=== PATIENT | female | born 1995 | race Caucasian/White ===

== ENCOUNTER 2017-02-22 16:20 | Emergency (ER) | payer SELFPAY ==
[~2017-02-22] VITALS: Ht 162.6 cm; Wt 52.2 kg
[2017-02-22 16:34] VITALS: BP 124/67
[2017-02-22] MEDS ORDERED: LIDOCAINE 1% / SOD BICARB 8.4% 20 ML VIAL. IJ ONE (16:45)
[2017-02-22] MEDS ORDERED: DIPHTH,PERTUSS(ACELL),TET TOX 0.5 ML DISP.SYRIN. VAX IM ONE (16:45)
--- NOTE | 2017-02-22 17:47 | PHYS DOC ---
Past Medical History Past Medical History: No Pertinent History Past Surgical History: No Surgical History Additional Information: 3 TO 4 CIGARETTES A DAY Alcohol Use: None Drug Use: None Adult General Chief Complaint Chief Complaint: LACERATION/AVULSION HPI HPI Patient is a 21 year old female who presents with left ring finger laceration, patient accidentally cut herself with a knife that was in the sink while she was doing dishes. Review of Systems Review of Systems Constitutional: Denies fever or chills [] Eyes: Denies change in visual acuity, redness, or eye pain [] HENT: Denies nasal congestion or sore throat [] Musculoskeletal: Denies back pain or joint pain [] Integument: Left ring finger laceration Neurologic: Denies headache, focal weakness or sensory changes [] Endocrine: Denies polyuria or polydipsia [] Current Medications Current Medications Current Medications Medications (Trade) Dose Ordered Sig/Genevieve Start Time Stop Time Status Last Admin Dose Admin Diphtheria/ Tetanus/Acell Pertussis (Boostrix) 0.5 ml ONCE ONCE 02/22/17 16:45 02/22/17 16:46 DC 02/22/17 16:58 0.5 ML Lidocaine/Sodium Bicarbonate (Buffered Lidocaine 1%) 20 ml 1X ONCE 02/22/17 16:45 02/22/17 16:46 DC 02/22/17 16:56 20 ML Allergies Allergies Allergies Coded Allergies Type Severity Reaction Last Updated Verified Penicillins Allergy Intermediate Nausea and Vomiting 03/04/16 Yes Physical Exam Physical Exam Constitutional: Well developed, well nourished, no acute distress, non-toxic appearance. [] HENT: Normocephalic, atraumatic, bilateral external ears normal, oropharynx moist, no oral exudates, nose normal. [] Skin: Left medial ring finger, distal end with a laceration approximately 2 cm long, this no tendon involvement, full range of motion to the left ring finger MIP PIP and DIP joints. Adequate flexion and extension of the left ring finger at the MIP PIP and DIP joints. Adequate ulnar sensation to the left ring finger. +2 left radial pulse. Cap refill less than 2 seconds and left ring finger. Sensation intact to the left ring finger. Back: No tenderness, no CVA tenderness. [] Extremities: No tenderness, no cyanosis, no clubbing, ROM intact, no edema. [] Neurologic: Alert and oriented X 3, normal motor function, normal sensory function, no focal deficits noted. [] Psychologic: Affect normal, judgement normal, mood normal. [] Current Patient Data Vital Signs Vital Signs Date Time Temp Pulse Resp B/P Pulse Ox O2 Delivery O2 Flow Rate FiO2 02/22/17 16:34 98.4 89 16 124/67 99 Room Air 98.4 EKG EKG [] Radiology/Procedures Radiology/Procedures Indication: [] Left ring finger laceration Procedure: The patient was placed in the appropriate position and anesthesia around the finger was 1% buffered lidocaine. The area was then cleaned with 100 ML of normal saline and Betadine. The laceration was closed with 4 interrupted sutures using 5. 0 Ethilon. The wound was covered with Band-Aid Complications none Course & Med Decision Making Course & Med Decision Making Pertinent Labs and Imaging studies reviewed. (See chart for details) Patient has laceration to the left ring finger that was closed by me as noted in procedures. Tetanus was updated. Wound care instructions as well as return precautions provided. Dragon Disclaimer Dragon Disclaimer This electronic medical record was generated, in whole or in part, using a voice recognition dictation system. Departure Departure Impression: Primary Impression: Laceration of left ring finger Disposition: HOME, SELF-CARE Condition: STABLE Referrals: NO PCP (PCP) Follow-up with the ED or your own doctor in 7-10 days for suture removal Patient Instructions: Fingertip Laceration Additional Instructions: You were seen for finger laceration, you can shower. Keep the area clean and dry. Apply Neosporin to eat twice a day. Follow-up with the emergency room or your own doctor in 7-10 days for suture removal. REYNA PACHECO STEEL CRANE OPERATOR February 22, 2017 17:47
== END 2017-02-22 17:52 | disposition home or self-care (01) ==
LOC: ER 16:20
DX: S61.215A Laceration without foreign body of left ring finger without damage to nail, initial encounter (principal); Z88.0 Allergy status to penicillin; F17.210 Nicotine dependence, cigarettes, uncomplicated; W26.0XXA Contact with knife, initial encounter; Y93.89 Activity, other specified; Y92.89 Other specified places as the place of occurrence of the external cause; Y99.8 Other external cause status
CPT/HCPCS: 12002; 90471; 90715; 99283-25

== ENCOUNTER 2018-01-29 00:26 | Emergency (ER) | payer SELFPAY ==
[2018-01-29] MEDS ORDERED: traMADol 50 MG TABLET PO (01:00)
[2018-01-29] MEDS ORDERED: AZITHROMYCIN 250 MG TABLET. PO (01:00)
[2018-01-29] MEDS ORDERED: AZITHROMYCIN 250 MG TABLET. (01:13)
[2018-01-29] MEDS ORDERED: traMADol 50 MG TABLET (01:13)
[2018-01-29 01:21] LABS: NEG OBC UR NEG; POS OBC UR POS; U PREG PATIENT NEGATIVE (NEG)
== END 2018-01-29 01:18 | disposition home or self-care (01) ==
LOC: ER 00:26
DX: H66.92 Otitis media, unspecified, left ear (principal); Z88.0 Allergy status to penicillin
CPT/HCPCS: 81025; 84703; 99283

== ENCOUNTER 2018-06-23 19:45 | Emergency (ER) | payer SELFPAY ==
[~2018-06-23] VITALS: Ht 160 cm; Wt 63.5 kg
[~2018-06-23 19:45] MED LIST: AZIT250T PO; TRAM-48 PO
[2018-06-23 20:18] VITALS: BP 115/70
[2018-06-23] MEDS ORDERED: IPRATRPIUM/ALBUTEROL 0.5/2.5MG 3 ML NEBU. NEB ONE (20:45)
[2018-06-23] MEDS ORDERED: predniSONE 20 MG TABLET PO ONE (20:45)
--- NOTE | 2018-06-23 20:54 | PHYS DOC ---
Past Medical History Past Medical History: No Pertinent History Past Surgical History: No Surgical History Additional Information: 6 CIGARETTES PER DAY Alcohol Use: None Drug Use: None Adult General Chief Complaint Chief Complaint: RIB PAIN HPI HPI 23-year-old female presents to ER with complaints of 2 day history of right sided rib pain and discomfort with inspiration. Patient denies any injury or recent travel. Education reports she smokes less than one pack per day of cigarettes. She states she has not been able to smoke in the past couple of days due to increased shortness of air. Patient reports she has expiratory wheezing which has gradually worsened over the past day. She reports she Patient denies fever or chills, chest pain or palpitations, cough, or swelling in extremities. Patient denies taking any [id number] medications for pain. She reports she has had regular appetite. She denies past hx of PE/DVT, family hx of blood clots, Review of Systems Review of Systems Constitutional: Denies fever or chills [] Eyes: Denies change in visual acuity, redness, or eye pain [] HENT: Denies nasal congestion or sore throat [] Respiratory: Denies cough or shortness of breath. Reports pain with inspiration and right ribs Cardiovascular: Ports chest heaviness denying pain or palpitations GI: Denies abdominal pain, nausea, vomiting, bloody stools or diarrhea [] : Denies dysuria or hematuria [] Musculoskeletal: Denies back pain or joint pain [] Integument: Denies rash or skin lesions [] Neurologic: Denies headache, focal weakness or sensory changes [] All other systems were reviewed and found to be within normal limits, except as documented in this note. Current Medications Current Medications Current Medications Medications (Trade) Dose Ordered Sig/Genevieve Start Time Stop Time Status Last Admin Dose Admin Albuterol/ Ipratropium (Duoneb) 3 ml 1X ONCE 06/23/18 20:45 06/23/18 20:46 DC Prednisone (Prednisone) 40 mg 1X ONCE 06/23/18 20:45 06/23/18 20:46 DC Allergies Allergies Allergies Coded Allergies Type Severity Reaction Last Updated Verified Penicillins Allergy Intermediate Nausea and Vomiting 03/04/16 Yes Physical Exam Physical Exam Constitutional: Well developed, well nourished, no acute distress, non-toxic appearance. Speaking in full sentences HENT: Normocephalic, atraumatic, bilateral ears normal, oropharynx moist, no oral exudates, nose normal. [] Eyes: PERRLA, conjunctiva normal, no discharge. [] Neck: Normal range of motion, no tenderness, supple, no gross adenopathy Cardiovascular:Heart rate regular rhythm, no murmur [] Lungs & Thorax: Rt upper lobe expiratory wheezing- lt upper lobe clear. Bilat. lower lobes slight diminished lung sounds. Resp. equal/nonlabored. Tender to palp. rt lateral ribs- no crepitus/palp. deformity Abdomen: Bowel sounds normal, soft, no tenderness Skin: Warm, dry, no erythema, no rash. [] Back: No tenderness, no CVA tenderness. [] Extremities: No tenderness, no cyanosis, no clubbing, ROM intact, no edema. [] Neurologic: Alert and oriented X 3, normal motor function, normal sensory function, no focal deficits noted. [] Psychologic: Affect normal, judgement normal, mood normal. [] Current Patient Data Vital Signs Vital Signs Date Time Temp Pulse Resp B/P (MAP) Pulse Ox O2 Delivery O2 Flow Rate FiO2 06/23/18 20:18 98.6 88 16 115/70 (85) 99 Room Air 98.6 EKG EKG [] Radiology/Procedures Radiology/Procedures [] Course & Med Decision Making Course & Med Decision Making After initial exam while placing orders RN reported pt walked out of her room and eloped from the ER without notifying staff. This provider had discussed plan of care with her with plans for Duoneb and dose of prednisone and pt had agreed to plan as discussed. Dragon Disclaimer Dragon Disclaimer This electronic medical record was generated, in whole or in part, using a voice recognition dictation system. Departure Departure Impression: Primary Impression: Upper respiratory infection Additional Impression: Eloped from emergency department Disposition: 07 AGAINST MEDICAL ADVICE (eloped prior to tx/re-evaluation) Condition: GUARDED Referrals: NO PCP (PCP) Attending Signature Attending Signature I have reviewed the PA/WASTE DISPOSAL PLANT OPERATOR's note and plan of care. I was available for consultation as needed during the patient's visit in the emergency department. I agree with the clinical impression, plan, and disposition. Problem Qualifiers BECKY KWOK APRN Jun 23, 2018 20:54 ELISHA CABRERA DO Jun 25, 2018 03:26
== END 2018-06-23 23:50 | disposition left against medical advice (07) ==
LOC: ER 19:45
DX: J06.9 Acute upper respiratory infection, unspecified (principal); R07.81 Pleurodynia; F17.210 Nicotine dependence, cigarettes, uncomplicated; Z88.0 Allergy status to penicillin
CPT/HCPCS: 99281

== ENCOUNTER 2019-04-30 17:15 | Emergency (ER) | payer SELFPAY ==
[~2019-04-30] VITALS: Ht 162.6 cm; Wt 54.4 kg
[2019-04-30] MEDS ORDERED: IV NORMAL SALINE 1000ML BAG 1,000 ML IV ONE (19:00)
[2019-04-30] MEDS ORDERED: ONDA4TAB7 PO (19:09)
[2019-04-30] MEDS ORDERED: ONDANSETRON PF 4 MG/2 ML VIAL. IV ONE (19:15)
[2019-04-30 19:29] LABS: BASO % 0 % (0-3); EOS # 0.1 x10^3/uL (0.0-0.7); EOS % 1 % (0-3); HEMATOCRIT 42.4 % (36.0-47.0); HEMOGLOBIN 14.8 g/dL (12.0-15.5); LYMPH # 1.9 x10^3/uL (1.0-4.8); LYMPH % 21 % (24-48); MEAN CORPUSCULAR HEMOGLOBIN 30 pg (25-35); MEAN CORPUSCULAR HGB CONC 35 g/dL (31-37); MEAN CORPUSCULAR VOLUME 86 fL (79-100); MONO # 0.6 x10^3/uL (0.0-1.1); MONO % 6 % (0-9); NEUT # 6.6 x10^3uL (1.8-7.7); NEUT % 72 % (31-73); PLATELET COUNT 199 x10^3/uL (140-400); RED BLOOD COUNT 4.93 x10^6/uL (3.50-5.40); RED CELL DISTRIBUTION WIDTH 12.2 % (11.5-14.5); WHITE BLOOD COUNT 9.2 x10^3/uL (4.0-11.0)
--- NOTE | 2019-04-30 19:39 | PHYS DOC ---
Past Medical History Past Medical History: No Pertinent History Past Surgical History: No Surgical History Smoking: Less than 1pk/day Alcohol Use: None Drug Use: None Adult General Chief Complaint Chief Complaint: NAUSEA/VOMITING/DIARRHA HPI HPI Patient is a 24 year old female who presents with nausea, vomiting, and diarrhea. She reports the onset of non-bloody diarrhea starting Tuesday (04/27), f ollowed by nausea and multiple episodes of vomiting starting Tuesday. She denies blood in her emesis or stool and is worried that she is getting dehydrated because she has peed only once today (at 9 am) and feels dizzy. Last week she spent time with her niece and nephew (4 and 2 yo) who had the same symptoms. She denies fever, headache, abdominal pain, recent travel, and suspect food consumption. She admits to chills, dizziness. Her LMP ended 2 days ago. Review of Systems Review of Systems Constitutional: Denies fever. Admits chills. Eyes: Denies change in visual acuity, redness, or eye pain HENT: Denies nasal congestion or sore throat Respiratory: Denies cough or shortness of breath Cardiovascular: No additional information not addressed in HPI GI: Denies abdominal pain, or bloody stools. Admits diarrhea, nausea, and vomit ing. : Denies dysuria or hematuria Musculoskeletal: Denies back pain or joint pain Integument: Denies rash or skin lesions Neurologic: Denies headache, focal weakness or sensory changes Endocrine: Denies polyuria or polydipsia All other systems were reviewed and found to be within normal limits, except as documented in this note. Current Medications Current Medications Current Medications Medications (Trade) Dose Ordered Sig/Genevieve Start Time Stop Time Status Last Admin Dose Admin Ondansetron HCl (Zofran) 4 mg 1X ONCE 04/30/19 19:15 04/30/19 19:16 DC 04/30/19 19:30 4 MG Sodium Chloride 1,000 ml @ 1,000 mls/hr 1X ONCE 04/30/19 19:00 04/30/19 19:59 DC 04/30/19 19:31 1,000 MLS/HR Allergies Allergies Allergies Coded Allergies Type Severity Reaction Last Updated Verified Penicillins Allergy Intermediate Nausea and Vomiting 03/04/16 Yes Physical Exam Physical Exam Constitutional: Well developed, well nourished, no acute distress, non-toxic appearance. HENT: Normocephalic, atraumatic, bilateral external ears normal, oropharynx moist, no oral exudates, nose normal. Eyes: PERRLA, EOMI, conjunctiva normal, no discharge. Neck: Normal range of motion, no tenderness, supple, no stridor. Cardiovascular:Heart rate regular rhythm, no murmur Lungs & Thorax: Bilateral breath sounds clear to auscultation Abdomen: Bowel sounds normal, soft, no tenderness, no masses, no pulsatile masses. Pt reports that palpation worsens nausea but does not cause her pain. Skin: Warm, dry, no erythema, no rash. Back: No tenderness, no CVA tenderness. Extremities: No tenderness, no cyanosis, no clubbing, ROM intact, no edema. Neurologic: Alert and oriented X 3, normal motor function, normal sensory function, no focal deficits noted. Current Patient Data Vital Signs Vital Signs Date Time Temp Pulse Resp B/P (MAP) Pulse Ox O2 Delivery O2 Flow Rate FiO2 04/30/19 18:27 98.5 96 14 130/69 (89) 98 Room Air 98.5 Lab Values Laboratory Tests Test 04/30/19 19:20 White Blood Count 9.2 x10^3/uL (4.0-11.0) Red Blood Count 4.93 x10^6/uL (3.50-5.40) Hemoglobin 14.8 g/dL (12.0-15.5) Hematocrit 42.4 % (36.0-47.0) Mean Corpuscular Volume 86 fL (79-100) Mean Corpuscular Hemoglobin 30 pg (25-35) Mean Corpuscular Hemoglobin Concent 35 g/dL (31-37) Red Cell Distribution Width 12.2 % (11.5-14.5) Platelet Count 199 x10^3/uL (140-400) Neutrophils (%) (Auto) 72 % (31-73) Lymphocytes (%) (Auto) 21 % (24-48) L Monocytes (%) (Auto) 6 % (0-9) Eosinophils (%) (Auto) 1 % (0-3) Basophils (%) (Auto) 0 % (0-3) Neutrophils # (Auto) 6.6 x10^3uL (1.8-7.7) Lymphocytes # (Auto) 1.9 x10^3/uL (1.0-4.8) Monocytes # (Auto) 0.6 x10^3/uL (0.0-1.1) Eosinophils # (Auto) 0.1 x10^3/uL (0.0-0.7) Basophils # (Auto) 0.0 x10^3/uL (0.0-0.2) Maternal Serum HCG Beta Subunit < 1 mIU/mL (0-5) Sodium Level 140 mmol/L (136-145) Potassium Level 3.4 mmol/L (3.5-5.1) L Chloride Level 106 mmol/L (98-107) Carbon Dioxide Level 25 mmol/L (21-32) Anion Gap 9 (6-14) Blood Urea Nitrogen 7 mg/dL (7-20) Creatinine 0.7 mg/dL (0.6-1.0) Estimated GFR (Cockcroft-Gault) 104.6 BUN/Creatinine Ratio 10 (6-20) Glucose Level 107 mg/dL (70-99) H Calcium Level 9.1 mg/dL (8.5-10.1) Total Bilirubin 0.5 mg/dL (0.2-1.0) Aspartate Amino Transferase (AST) 13 U/L (15-37) L Alanine Aminotransferase (ALT) 20 U/L (14-59) Alkaline Phosphatase 19 U/L (46-116) L Total Protein 7.6 g/dL (6.4-8.2) Albumin 4.2 g/dL (3.4-5.0) Albumin/Globulin Ratio 1.2 (1.0-1.7) Laboratory Tests 04/30/19 19:20 Laboratory Tests 04/30/19 19:20 EKG EKG [] Radiology/Procedures Radiology/Procedures [] Course & Med Decision Making Course & Med Decision Making Pertinent Labs and Imaging studies reviewed. (See chart for details) [24 year old female presents with nausea, non-bloody diarrhea, and non-bloody vomiting. She had close contacts with 2 children who had similar symptoms a week ago. Onset of diarrhea was tuesday, n/v started tuesday. She reports that she is not vomiting as much today as she did tuesday. She admits to chills and dizziness. She denies abdominal pain, fever, chest pain, bloody diarrhea, recent travel, or consumption of suspect food. Her last menstrual period ended 2 days ago. Zofran was given to help patient with nausea and IV fluids were started to replenish diarrhea and vomit induced volume depletion. Discussed with patient that viral gastroenteritis was most likely but that she should return to the [facility] or her primary care provider if her symptoms worsen, experiences bloody diarrhea or vomiting, develops fever, or if her symptoms do not improve within a week.] Dragon Disclaimer Dragon Disclaimer This electronic medical record was generated, in whole or in part, using a voice recognition dictation system. Departure Departure Impression: Primary Impression: Nausea vomiting and diarrhea Disposition: HOME, SELF-CARE Condition: STABLE Patient Instructions: Nausea and Vomiting, [id number] Scripts Ondansetron Hcl (ZOFRAN) 4 Mg Tablet 4 MG PO PRN TID PRN for NAUSEA/VOMITING, #15 nausea/vomiting Prov: DANIEL CALLOWAY MD 04/30/19 DANIEL CALLOWAY MD Apr 30, 2019 19:39
[2019-04-30 19:40] LABS: CALCIUM 9.1 mg/dL (8.5-10.1); CREATININE 0.7 mg/dL (0.6-1.0); GFR 104.6; POTASSIUM 3.4 mmol/L (3.5-5.1)
[2019-04-30 19:46] LABS: ALBUMIN 4.2 g/dL (3.4-5.0); ALBUMIN/GLOBULIN RATIO 1.2 (1.0-1.7); TOTAL BILIRUBIN 0.5 mg/dL (0.2-1.0); TOTAL PROTEIN 7.6 g/dL (6.4-8.2)
[2019-04-30 19:55] VITALS: BP 110/60
== END 2019-04-30 20:15 | disposition home or self-care (01) ==
LOC: ER 17:15
DX: R11.2 Nausea with vomiting, unspecified (principal); R19.7 Diarrhea, unspecified; R42 Dizziness and giddiness; F17.200 Nicotine dependence, unspecified, uncomplicated; Z88.0 Allergy status to penicillin
CPT/HCPCS: 36415; 80053; 84702; 85025; 96361; 96374; 99284; J2405; J7030

== ENCOUNTER 2020-04-04 16:31 | Emergency (ER) | payer SELFPAY ==
[~2020-04-04] VITALS: Ht 162.6 cm; Wt 54.5 kg
[~2020-04-04 16:31] MED LIST changes: +ONDA4TAB7 PO
[2020-04-04 17:09] VITALS: BP 116/71
[2020-04-04] MEDS ORDERED: PRED20TA PO (17:28)
--- NOTE | 2020-04-04 17:29 | PHYS DOC ---
Past Medical History Past Medical History: No Pertinent History Past Surgical History: No Surgical History Smoking Status: Current Every Day Smoker Alcohol Use: None Drug Use: None General Adult EDM: Chief Complaint: SKIN RASH/ABSCESS HPI: HPI: Patient is a 24 year old male who presents to the emergency department with complaints of a poison leanna rash to her face, chest, and left arm for the last 2 days. Patient states that her left eyelid is swollen due to the poison leanna but denies any tearing or drainage from her left eye. Patient also denies any vision changes, fever, cough, shortness of breath, wheezing, nausea, vomiting, diarrhea, abdominal pain, numbness, or tingling. She states that the rashes been very itchy. She currently rates her discomfort a 4 out of 10 on pain scale she denies any alleviating factors. Review of Systems: Review of Systems: Complete review of systems is negative unless otherwise documented in the HPI. Heart Score: Risk Factors: Risk Factors: DM, Current or recent (<one month) smoker, HTN, HLP, family history of CAD, obesity. Risk Scores: Score 0 - 3: 2.5% MACE over next 6 weeks - Discharge Home Score 4 - 6: 20.3% MACE over next 6 weeks - Admit for Clinical Observation Score 7 - 10: 72.7% MACE over next 6 weeks - Early Invasive Strategies Allergies: Allergies: Allergies Coded Allergies Type Severity Reaction Last Updated Verified Penicillins Allergy Intermediate Nausea and Vomiting 03/04/16 Yes Physical Exam: PE: Constitutional: Well developed, well nourished, no acute distress, non-toxic appearance. [] HENT: Normocephalic, atraumatic, bilateral external ears normal, nose normal. [] Eyes: PERRLA, EOMI, conjunctiva normal, no discharge; erythema and edema noted to left eyelids consistent with poison leanna rash. [] Neck: Normal range of motion, no stridor. [] Cardiovascular:Heart rate regular rhythm Lungs & Thorax: Respirations even and unlabored, no retractions, no respiratory distress Skin: Warm, dry; erythemic welts consistent with poison leanna noted to left side of face, left neck, left chest, and left upper extremity Extremities: No cyanosis, ROM intact, no edema. [] Neurologic: Alert and oriented X 3, no focal deficits noted. [] Psychologic: Affect normal, judgement normal, mood normal. [] Current Patient Data: Vital Signs: Vital Signs Date Time Temp Pulse Resp B/P (MAP) Pulse Ox O2 Delivery O2 Flow Rate FiO2 04/04/20 17:09 98.4 55 18 116/71 (86) 100 Room Air 98.4 EKG: EKG: [] Radiology/Procedures: Radiology/Procedures: [] Course & Med Decision Making: Course & Med Decision Making Pertinent Labs and Imaging studies reviewed. (See chart for details) [] Dragon Disclaimer: Dragon Disclaimer: This electronic medical record was generated, in whole or in part, using a voice recognition dictation system. Departure Departure Impression: Primary Impression: Poison leanna dermatitis Disposition: HOME, SELF-CARE Condition: STABLE Referrals: NO PCP (PCP) Patient Instructions: Poison Leanna, [id number] Additional Instructions: Fill prescription(s) and use as directed. Recommend [id number] Benadryl and [id number] Benadryl itch relief cream or calamine lotion for relief of itching. May also apply a mixture of 50% water 50% vinegar to affected areas to help dry rash up. Follow up with your primary care doctor if symptoms worsen or persist. Scripts Prednisone (PREDNISONE) 20 Mg Tablet 1 TAB PO UD for 12 Days, #15 TAB 2 tabs by mouth days 1,2,3 then 1.5 tabs by mouth days 4,5,6 then 1 tab by mouth days 7,8,9 then 0.5 tab by mouth day 10,11,12 Prov: LONNIE CAVAZOS APRN 04/04/20 Justicifation of Admission Dx: Justifications for Admission: Justification of Admission Dx: N/A LONNIE CAVAZOS CAFETERIA TABLE ATTENDANT Apr 04, 2020 17:29
[2020-04-04] MEDS ORDERED: DEXAMETHASONE SOD PHOS 20 MG/5 ML VIAL. IM ONE (17:30)
== END 2020-04-04 17:45 | disposition home or self-care (01) ==
LOC: ER 16:31
DX: L23.7 Allergic contact dermatitis due to plants, except food (principal); R21 Rash and other nonspecific skin eruption; F17.200 Nicotine dependence, unspecified, uncomplicated; Z88.0 Allergy status to penicillin
CPT/HCPCS: 99283; J1100